=== PATIENT | male | born 1940 | race Caucasian/White ===

== ENCOUNTER 2016-10-26 07:18 | Day surgery (SDC) | payer MEDICARE, OTHER ==
[~2016-10-26] VITALS: Ht 177.8 cm; Wt 90.7 kg
[~2016-10-26 07:18] MED LIST: BSS with VANC/TOB/EPI for EYE CASES IR ONE; CYCLOPENTOLATE 2% OPHTH SOLN 2ML BTL OS ONE; HEALON DUET (HEALON 10MG/ML 0.55ML & HEALON ENDOCOAT 30MG/ML 0.85ML) As Ordered ONE; LIDOCAINE 1% SDV 5 ML VIAL As Ordered ONE; LIDOCAINE 3.5 % 1ML OPHTH TOPICAL GEL As Ordered ONE; LIDOCAINE 3.5 % 1ML OPHTH TOPICAL GEL OU ONE; LISI20TA PO; METF10004 PO; METO-346 PO; OFLOXACIN 0.3 % (OCUFLOX) OPTH SOL 5ML OS ONE; PHENYLEPHRINE 2.5% OPHTH SOL 2ML OS ONE; PIOG15TA3 PO; POVIDONE-IODINE 5% OPHTH PREP SOL 30ML As Ordered ONE; SIMV10TA2 PO; TRAM50TA2 PO; TRIAMCINOLONE PRES FR 40 MG/ML 1ML(TRIESENCE)(OR EYE ONLY)(J3300 PER 1MG) As Ordered ONE; TROPICAMIDE 1% OPHTH SOLN 2ML OS ONE
[2016-10-26] MEDS ORDERED: LR 500 ML IV ONE (07:30)
[2016-10-26] MEDS ORDERED: MIDAZOLAM INJ 2 MG/2 ML VIAL (J2250) As Ordered ONE (08:38)
[2016-10-26] MEDS ORDERED: fentaNYL 100 MCG/2 ML INJECTION (J3010) As Ordered ONE (08:39)
[2016-10-26] MEDS ORDERED: MOXIFLOXACIN IN BSS 0.25MG/0.25ML INTRACAMERAL INJ (OR EYE ONLY)(J2280) XX ONE (09:11)
[2016-10-26 09:30] VITALS: BP 122/61
[2016-10-26] MEDS ORDERED: MOXIFLOXACIN IN BSS 0.25MG/0.25ML INTRACAMERAL INJ (OR EYE ONLY)(J2280) As Ordered ONE (11:40)
--- NOTE | 2016-10-27 11:29 | RO ---
DATE OF PROCEDURE: 10/26/2016 PREOPERATIVE DIAGNOSIS: Cataract left eye. POSTOPERATIVE DIAGNOSIS: Cataract left eye. PROCEDURE: Femtosecond laser with phacoemulsification and intraocular lens implantation of RAINALINO, model 250, power 22 diopters. SURGEON: Quintin Nixon MD EARLY CHILDHOOD DIRECTOR: None. ANESTHESIA: Monitored anesthesia care (MAC). COMPLICATIONS: None. DESCRIPTION OF PROCEDURE: The patient was brought to the operating room and laid in supine position. A lid speculum was placed, and patient was brought under the femtosecond laser. After the satisfactory placement of the patient interface, primary incision, secondary incision, and arcuate incisions with lens fragmentation was done without any complication per plan. The patients interface was then removed and lid speculum removed. Patient was placed under the microscope. The eye was prepped and draped in a sterile fashion for ophthalmic surgery. Lid speculum was placed. The secondary incision was opened, and EndoCoat was injected into the anterior chamber. The temporal clear corneal incision was then opened and capsulorrhexis removed, followed by hydrodissection. This was followed by phacoemulsification of the lens within the capsular bag. Cortical material was then aspirated, and Healon was injected into the capsular bag. Intraocular lens was then placed. Excess Healon was aspirated. Wound was hydrated. The lid speculum was removed, and patient was returned to the recovery room in stable condition. Edited: [facility] 10/28/2016 [id number]
== END 2016-10-26 10:00 | disposition home or self-care (01) ==
LOC: M SDC 07:18
PROVIDERS: ATTEND Ophthalmology
DX: H26.9 Unspecified cataract (principal); I10 Essential (primary) hypertension; E11.9 Type 2 diabetes mellitus without complications; J45.909 Unspecified asthma, uncomplicated; Z77.120 Contact with and (suspected) exposure to mold (toxic); M19.90 Unspecified osteoarthritis, unspecified site; N52.9 Male erectile dysfunction, unspecified; K27.9 Peptic ulcer, site unspecified, unspecified as acute or chronic, without hemorrhage or perforation; N40.0 Benign prostatic hyperplasia without lower urinary tract symptoms; R06.83 Snoring; E78.00 Pure hypercholesterolemia, unspecified; Z88.0 Allergy status to penicillin; Z79.899 Other long term (current) drug therapy; Z79.84 Long term (current) use of oral hypoglycemic drugs; Z79.82 Long term (current) use of aspirin
CPT/HCPCS: 66984; J2250; J2280; J3010; J3300; V2632

== ENCOUNTER 2016-11-16 07:11 | Day surgery (SDC) | payer MEDICARE, OTHER ==
[~2016-11-16] VITALS: Ht 177.8 cm; Wt 91.0 kg
[~2016-11-16 07:11] MED LIST changes: +ACETAMINOPHEN 325 MG TAB PO PRN; -BSS with VANC/TOB/EPI for EYE CASES IR ONE; -CYCLOPENTOLATE 2% OPHTH SOLN 2ML BTL OS ONE; -HEALON DUET (HEALON 10MG/ML 0.55ML & HEALON ENDOCOAT 30MG/ML 0.85ML) As Ordered ONE; -LIDOCAINE 1% SDV 5 ML VIAL As Ordered ONE; -LIDOCAINE 3.5 % 1ML OPHTH TOPICAL GEL As Ordered ONE; -LIDOCAINE 3.5 % 1ML OPHTH TOPICAL GEL OU ONE; -OFLOXACIN 0.3 % (OCUFLOX) OPTH SOL 5ML OS ONE; -PHENYLEPHRINE 2.5% OPHTH SOL 2ML OS ONE; -POVIDONE-IODINE 5% OPHTH PREP SOL 30ML As Ordered ONE; +PROPARACAINE 0.5% OPHTH SOL 15ML OD PRN; -TRIAMCINOLONE PRES FR 40 MG/ML 1ML(TRIESENCE)(OR EYE ONLY)(J3300 PER 1MG) As Ordered ONE; -TROPICAMIDE 1% OPHTH SOLN 2ML OS ONE
[2016-11-16] MEDS: LIDOCAINE 3.5 % 1ML OPHTH TOPICAL GEL OU ONE (09:21)
[2016-11-16] MEDS: OFLOXACIN 0.3 % (OCUFLOX) OPTH SOL 5ML OD ONE (09:21)
[2016-11-16] MEDS: TROPICAMIDE 1% OPHTH SOLN 2ML OD ONE (09:22)
[2016-11-16] MEDS: PHENYLEPHRINE 2.5% OPHTH SOL 2ML OD ONE (09:22)
[2016-11-16] MEDS: CYCLOPENTOLATE 2% OPHTH SOLN 2ML BTL OD ONE (09:22)
[2016-11-16] MEDS ORDERED: fentaNYL 100 MCG/2 ML INJECTION (J3010) As Ordered ONE (10:39)
[2016-11-16] MEDS ORDERED: MIDAZOLAM INJ 2 MG/2 ML VIAL (J2250) As Ordered ONE (10:39)
[2016-11-16] MEDS: POVIDONE-IODINE 5% OPHTH PREP SOL 30ML As Ordered ONE (10:57)
[2016-11-16] MEDS: TRIAMCINOLONE PRES FR 40 MG/ML 1ML(TRIESENCE)(OR EYE ONLY)(J3300 PER 1MG) As Ordered ONE (11:02)
[2016-11-16] MEDS: HEALON DUET (HEALON 10MG/ML 0.55ML & HEALON ENDOCOAT 30MG/ML 0.85ML) As Ordered ONE (11:02)
[2016-11-16] MEDS: MOXIFLOXACIN IN BSS 0.25MG/0.25ML INTRACAMERAL INJ (OR EYE ONLY)(J2280) As Ordered ONE (11:02)
[2016-11-16] MEDS: LIDOCAINE 1% SDV 5 ML VIAL As Ordered ONE (11:02)
[2016-11-16] MEDS: BSS with VANC/TOB/EPI for EYE CASES IR ONE (11:02)
[2016-11-16 11:45] VITALS: BP 121/69
[2016-11-16] MEDS ORDERED: KETOROLAC 0.5% OPHTH SOLN OD ONE (11:45)
[2016-11-16] MEDS ORDERED: ONDANSETRON 4MG/2ML VIAL (J2405) IV PRN (11:45)
[2016-11-16] MEDS ORDERED: LR 1,000 ML IV SCH (11:45)
[2016-11-16] MEDS ORDERED: TRIMETHOBENZAMIDE 300 MG CAP PO PRN (11:45)
[2016-11-16] MEDS: AcetaZOLAMIDE 500 MG ER CAP PO ONE (11:49)
--- NOTE | 2016-11-16 13:37 | RO ---
DATE OF PROCEDURE: 11/16/2016 PREPROCEDURE DIAGNOSIS: Cataract of right eye. POSTPROCEDURE DIAGNOSIS: Cataract of right eye. PROCEDURE: Femtosecond laser and phacoemulsification of the intraocular lens with lens implantation right eye. Intraocular lens power used was Hoya, 21.5 diopter. SURGEON: Quintin Nixon MD MACHINE STAPLER: None. ANESTHESIA: Local IV standby. FINDINGS: Cataract of right eye. COMPLICATIONS: None. DESCRIPTION OF PROCEDURE: The patient was brought to the operating room and laid in supine position. A lid speculum was placed, and patient was brought under the femtosecond laser. After the satisfactory placement of the patient interface, primary incision, secondary incision, and arcuate incisions with lens fragmentation was done without any complication per plan. The patients interface was then removed and lid speculum removed. Patient was placed under the microscope. The eye was prepped and draped in a sterile fashion for ophthalmic surgery. Lid speculum was placed. The secondary incision was opened, and EndoCoat was injected into the anterior chamber. The temporal clear corneal incision was then opened and capsulorrhexis removed, followed by hydrodissection. This was followed by phacoemulsification of the lens within the capsular bag. Cortical material was then aspirated, and Healon was injected into the capsular bag. Intraocular lens was then placed. Excess Healon was aspirated. Wound was hydrated. The lid speculum was removed, and patient was returned to the recovery room in stable condition.
== END 2016-11-16 12:00 | disposition home or self-care (01) ==
LOC: M SDC 07:11
PROVIDERS: ATTEND Ophthalmology
DX: H26.9 Unspecified cataract (principal); I10 Essential (primary) hypertension; E78.00 Pure hypercholesterolemia, unspecified; E11.9 Type 2 diabetes mellitus without complications; M12.9 Arthropathy, unspecified; R06.83 Snoring; N40.0 Benign prostatic hyperplasia without lower urinary tract symptoms; Z88.0 Allergy status to penicillin; Z79.899 Other long term (current) drug therapy

== ENCOUNTER → 2019-11-26 | Outpatient (CLI) | payer MEDICARE, OTHER ==
[~2019-11-26] MED LIST changes: -ACETAMINOPHEN 325 MG TAB PO PRN; -LISI20TA PO; +LISI20TA35 PO; -PIOG15TA3 PO; +PIOG1TAB36 PO; -PROPARACAINE 0.5% OPHTH SOL 15ML OD PRN; -SIMV10TA2 PO; +SIMV10TA21 PO
--- NOTE | 2019-12-06 14:54 | REP ---
RENAL ULTRASOUND HISTORY: Chronic kidney disease. FINDINGS: Real time sonographic evaluation of the kidneys is performed. The kidneys are normal in size and echotexture, the right kidney measuring 10.0 x 4.3 x 4.8 cm and the left kidney measuring 11.3 x 3.8 x 5.5 cm. There is no hydronephrosis bilaterally. Two cystic structures in the mid-right kidney are visualized measuring 1.7 x 0.8 x 1.3 cm and 7 x 8 x 7 mm. IMPRESSION: No hydronephrosis. Two small cystic structures mid-right kidney. MTDD
--- NOTE | 2019-12-06 14:54 | REP ---
BLADDER ULTRASOUND HISTORY: Urinary tract infection. FINDINGS: Real time sonographic evaluation of the urinary bladder is performed. The bladder wall appears trabeculated. The bladder measures 6.9 x 6.0 x 5.9 cm for a total volume of 160 cc. No focal bladder wall mass is seen. No calculus is seen. Ureteral jets are seen in the urinary bladder bilaterally with Doppler color evaluation. Post void residual was 6 cc, which is approximately 4% of the original volume. The prostate measures 3.6 x 3.8 x 4.4 cm. IMPRESSION: Bladder wall appears mildly trabeculated. The study is otherwise unremarkable. The prostate measures 3.6 x 3.8 x 4.4 cm. Post void residual is approximately 4%. MTDD
== END ==
LOC: M RAD 10:24
PROVIDERS: ATTEND Internal Medicine Nephrology
DX: N18.3 Chronic kidney disease, stage 3 (moderate) (principal); N40.1 Benign prostatic hyperplasia with lower urinary tract symptoms; N28.1 Cyst of kidney, acquired

== ENCOUNTER → 2020-01-10 | Outpatient (REF) | payer MEDICARE, OTHER ==
[2020-01-10 18:38] LABS: TOTAL PROTEIN 6.8 GM/DL (6.4-8.2)
[2020-01-10 19:03] LABS: BACTERIA, URINE AUTO NEGATIVE (NEGATIVE); RBC, URINE AUTO 0 /HPF (0-3); SQUAMOUS EPITHELIAL CELL UR AU 0 /HPF (0-6); WBC, URINE AUTO 0 /HPF (0-3)
== END ==
LOC: M LAB REF 17:04
PROVIDERS: ATTEND Internal Medicine Nephrology
DX: R80.9 Proteinuria, unspecified (principal); N18.30 Chronic kidney disease, stage 3 unspecified; R31.29 Other microscopic hematuria

== ENCOUNTER → 2021-01-11 | Outpatient (REF) | payer MEDICARE, OTHER | LOC: M LAB REF 13:17 | PROVIDERS: ATTEND Internal Medicine Nephrology | DX: E11.22 Type 2 diabetes mellitus with diabetic chronic kidney disease (principal) ==